=== PATIENT | male | born 1960 | race Caucasian/White ===

== ENCOUNTER 2016-04-22 15:43 | Emergency (ER) | payer BC, OTHER ==
[2016-04-22] MEDS ORDERED: DIPH/PERTUSS(ACELL)/TETANUS VAC/PF 0.5 ML SYR (>=10YO) IM ONE (15:55)
[2016-04-22] MEDS ORDERED: OXYCODONE-ACETAMINOPHEN 5-325 MG TABLET PO ONE (15:55)
[2016-04-22] MEDS ORDERED: ONDANSETRON 4 MG TAB.RAPDIS PO ONE (15:55)
--- NOTE | 2016-04-22 16:02 | ER Document Report ---
ED Medical Screen (RME) - General Chief Complaint: Laceration Stated Complaint: FINGER PAIN Time seen by provider: 15:55 Mode of Arrival: Ambulatory Information source: Patient Notes: 56-year-old male cut his left index finger over the PIP joint with boc cutter at 3 PM today causing a tendon cut. He cannot extend his finger. from the PIP joint. consult dr. martin. I have greeted and performed a rapid initial assessment of this patient. A comprehensive ED assessment, evaluation of the patient, analysis of test results , and completion of the medical decision making process will be conducted by additional ED providers. It Physical Exam - Vital signs Vitals: Temp Pulse Resp BP Pulse Ox 97.9 F 54 L 16 113/71 99 04/22/16 15:48 04/22/16 15:48 04/22/16 15:48 04/22/16 15:48 04/22/16 15:48 Course - Vital Signs Vital signs: Temp Pulse Resp BP Pulse Ox 97.9 F 54 L 16 113/71 99 04/22/16 15:48 04/22/16 15:48 04/22/16 15:48 04/22/16 15:48 04/22/16 15:48
[2016-04-22] MEDS ORDERED: PIPERACILLIN/TAZOBACTAM 3.375 GM VIAL IV ONE (16:37)
[2016-04-22] MEDS ORDERED: MORPHINE SULFATE 10 MG/ML INJ IV PRN (16:38)
[2016-04-22] MEDS ORDERED: LIDOCAINE 1% INJ-PF (10 MG/ML) 30 ML SDV INJ ONE (16:53)
[2016-04-22] MEDS ORDERED: MORPHINE SULFATE 10 MG/ML INJ ONE (17:47)
--- NOTE | 2016-04-22 18:51 | ER Document Report ---
ED Wound - General Chief Complaint: Laceration Stated Complaint: FINGER PAIN Time seen by provider: 17:00 Mode of Arrival: Ambulatory Information source: Patient Notes: This is a 56-year-old male with no prior medical problems who was working on a home repair and cutting vinyl sheets with a box stamper. He is right-handed and was cutting vinyl sheets and accidentally slipped and cut his left index finger. Last tetanus shot 12 years ago. Allergies: None Medical problems: None Medicines: None TRAVEL OUTSIDE OF THE [place] IN LAST 30 DAYS: No - HPI Patient complains to provider of: Laceration Occurred: Just prior to arrival Onset/Duration: Sudden Quality of pain: Sharp Severity: Moderate Pain Level: 3 Context: Injury Skin Temperature: Warm Skin Color: Normal Capillary refill: < 3 seconds Sensations intact: Yes Distal pulses present: Yes Associated Symptoms: None - Related Data Allergies/Adverse Reactions: No Known Allergies Allergy (Unverified 04/22/16 16:49) Past Medical History - General Information source: Patient - Social History Smoking Status: Former Smoker Cigarette use (# per day): No Chew tobacco use (# tins/day): No Frequency of alcohol use: None Drug Abuse: None Lives with: Family Family History: Reviewed & Not Pertinent Patient has suicidal ideation: No Patient has homicidal ideation: No - Medical History Medical History: Negative Renal/ Medical History: Denies: Hx Peritoneal Dialysis Past Surgical History: Reports: Hx Appendectomy Review of Systems - Review of Systems Constitutional: denies: Chills, Fever EENT: No symptoms reported Cardiovascular: No symptoms reported Respiratory: No symptoms reported Gastrointestinal: No symptoms reported Genitourinary: No symptoms reported Male Genitourinary: No symptoms reported Musculoskeletal: See HPI Skin: See HPI Hematologic/Lymphatic: No symptoms reported Neurological/Psychological: No symptoms reported Physical Exam - Vital signs Vitals: Temp Pulse Resp BP Pulse Ox 97.9 F 54 L 16 113/71 99 04/22/16 15:48 04/22/16 15:48 04/22/16 15:48 04/22/16 15:48 04/22/16 15:48 Notes: Physical exam: GENERAL: 56-year-old man, alert and oriented 3, no acute distress. HEAD: Atraumatic, normocephalic. Left hand: Good radial pulse Left index finger: Patient has a 3 cm laceration through the PIP joint with obvious joint exposure. The finger is held in passive flexion . Both the flexor tendon superficialis and the flexor tendon profundus appear to be lacerated. There is no significant bleeding. The capillary refill is less than 3 seconds. The patient does have fine point sensation to the distal finger. He is unable to actively extend the finger. The rest of the hand: The rest of the fingers are intact. The patient does have a splinter in the left thenar eminence which I was able to remove. Course - Re-evaluation Re-evalutation: 04/22/16 18:45 I discussed case with Dr. Lemus who was covering for orthopedics. We discussed the case that both tendons (flexor digitorum profundus and flexor digitorum superficialis) appear to be lacerated and that the wound goes right into the PIP joint. He is recommended that we clean out the wound and the joint is well as possible and that the patient follow-up tomorrow or the day after with Dr. Kirby for hand surgery. The patient was given TD IM. He was given IV Zosyn He received IV morphine The patient's entire left hand was scrubbed with a surgical scrub brush 2. The wound itself was cleaned with Shur-Clens and then irrigated copiously under high pressure irrigation with sterile water. The wound was inspected. It was then closed with 5 nylon sutures. The wound was then covered with Xeroform and gauze and the patient was splinted in full extension. He will be given a sling. 04/22/16 19:07 - Vital Signs Vital signs: Temp Pulse Resp BP Pulse Ox 97.9 F 54 L 16 113/71 99 04/22/16 15:48 04/22/16 15:48 04/22/16 15:48 04/22/16 15:48 04/22/16 15:48 Procedures - Immobilization Left Finger Time completed: 19:00 Pre-Proc Neuro Vasc Exam: Normal Immobilizer type: Finger splint (Static) Performed by: Provider Post-Proc Neuro Vasc Exam: Normal Alignment checked and good: Yes - Laceration/Wound Repair Left Finger Time completed: 19:00 Wound length (cm): 3 Wound's Depth, Shape: Other Laceration pre-procedure: Betadine prep applied, Chloraprep applied, Sterile drapes applied Anesthetic type: 1% Lidocaine Volume Anesthetic (mLs): 5 Wound explored: No foreign body removed Irrigated w/ Saline (mLs): 1,000 Wound Repaired With: Sutures Suture Size/Type: 4:0, Nylon Number of Sutures: 5 Layer Closure?: No Post-procedure wound care: Sterile dressing applied, Splint applied, Sling applied Post-procedure NV exam normal: Yes Complications: No Notes: 04/22/16 19:09 The entire hand was first scrubbed with a surgical scrub brush. The fingernails were cleaned. The patient was given a digital block on the volar aspect of the second MCP joint with 5 mL's of 1% lidocaine (no epi). The wound was then cleaned with surgery scrub. The wound was then copiously irrigated with a liter of normal saline under high pressure. The joint was manipulated as the patient was continued to be irrigated. The site was then prepped with ChloraPrep and 5 sutures were placed to close the skin. The wound site was then covered with Xeroform and gauze. A finger splint was used to keep the finger in complete hyperextension. Curlex was then used to create a bulky dressing around the splint. The patient was given a sling Discharge - Discharge Clinical Impression: extensor tendon laceration, left PIP joint laceration, left index finger extensor tendon lac Condition: Stable Disposition: HOME, SELF-CARE Instructions: Tetanus Immunization Given ([facility]), Prophylactic Antibiotic ([facility]), Laceration Care ([facility]), Oral Narcotic Medication ([facility]) Additional Instructions: Recommendations: Call the orthopedic clinic tomorrow. Tell them you were seen in the emergency room and found to have laceration of the left index finger extensor tendons and had a laceration through the PIP joint. Tell them that the ER doctor at spoken to Dr. Lemus and that wanted you seen by Dr. Kirby tomorrow or the day after to be evaluated and have surgery scheduled. Start the oral antibiotics as prescribed. He can start tonight. Take the pain medicine as needed. See the narcotic instruction sheet. You can keep the wound dressed until follow-up by the hand surgeon Return to the emergency room for increased pain, fever (temperature greater than 100.5), fingernail getting blue or any concerns he getting worse. The pain medicine you're taking prescribed as a narcotic. There are several important things you should know about this medicine: 1. This medicine contains Tylenol: It is important that you do not take Tylenol (or acetaminophen) while on this medicine. Tylenol is metabolized by the liver and taking too much Tylenol (acetaminophen) can lay to liver damage and even liver failure. 2. Taking narcotics for too long can lead to physical and mental dependence. Take this medicine only if really needed and in the lowest quantity to achieve pain relief. 3. Do not drink alcohol while on this medicine. Alcohol interacts with narcotics and the combination can be dangerous. 4. Do not drive or operate machinery while on this medicine. 5. Narcotics do cause constipation, so drink plenty of fluids and daily stool softeners. Prescriptions: Cephalexin Monohydrate [Keflex 500 mg Capsule] 500 mg PO QID #20 capsule Oxycodone HCl/Acetaminophen [Percocet 5-325 mg Tablet] 1 - 2 tab PO ASDIR PRN # 25 tablet PRN Reason: Referrals: TIO KIRBY, [ACTIVE STAFF] - Follow up as needed (This is the number for the hand surgeon.)
[2016-04-22 19:13] VITALS: BP 109/68
== END 2016-04-22 19:05 | disposition home or self-care (01) ==
LOC: ER 15:43
PROC: 0HQGXZZ Repair Left Hand Skin, External Approach (ICD-10-PCS; principal; 2016-04-22)
DX: S66.321A Laceration of extensor muscle, fascia and tendon of left index finger at wrist and hand level, initial encounter (principal); S61.211A Laceration without foreign body of left index finger without damage to nail, initial encounter; W45.8XXA Other foreign body or object entering through skin, initial encounter; Y93.H9 Activity, other involving exterior property and land maintenance, building and construction; Y92.009 Unspecified place in unspecified non-institutional (private) residence as the place of occurrence of the external cause; S60.552A Superficial foreign body of left hand, initial encounter; X58.XXXA Exposure to other specified factors, initial encounter; Z87.891 Personal history of nicotine dependence; Z23 Encounter for immunization
CPT/HCPCS: 96376; 99283; 90471; 96375; 96365; 73140; 90715; 12002; S0119; J2270; J2543